=== PATIENT | female | born 1970 | race Two or more races ===

== ENCOUNTER 2018-10-04 11:26 | Outpatient (CLI) | payer OTHER | END 2018-10-04 15:46 | disposition home or self-care (01) | LOC: MAMO-SONO 11:26 | DX: Z12.31 Encounter for screening mammogram for malignant neoplasm of breast (principal); N61.0 Mastitis without abscess ==

== ENCOUNTER 2019-11-17 12:51 | Outpatient (CLI) | payer OTHER | END 2019-11-17 13:17 | disposition home or self-care (01) | LOC: MAMO-SONO 12:51 | DX: Z12.31 Encounter for screening mammogram for malignant neoplasm of breast (principal); Z87.898 Personal history of other specified conditions; N60.11 Diffuse cystic mastopathy of right breast; N60.12 Diffuse cystic mastopathy of left breast ==

== ENCOUNTER 2021-05-07 14:40 | Outpatient (CLI) | payer OTHER | END 2021-05-07 15:03 | disposition home or self-care (01) | LOC: MAMO-SONO 14:40 | PROVIDERS: ATTEND Obstetrics & Gynecology | DX: N60.11 Diffuse cystic mastopathy of right breast (principal); N60.12 Diffuse cystic mastopathy of left breast; Z12.31 Encounter for screening mammogram for malignant neoplasm of breast ==

== ENCOUNTER 2023-03-08 13:27 | Outpatient (CLI) | payer OTHER | END 2023-03-08 13:41 | disposition home or self-care (01) | LOC: MAMO-SONO 13:27 | PROVIDERS: ATTEND Obstetrics & Gynecology | DX: Z12.31 Encounter for screening mammogram for malignant neoplasm of breast (principal); N60.11 Diffuse cystic mastopathy of right breast; N60.12 Diffuse cystic mastopathy of left breast ==

== ENCOUNTER 2024-08-15 10:33 | Outpatient (CLI) | payer OTHER | END 2024-08-15 10:45 | disposition home or self-care (01) | LOC: MAMO-SONO 10:33 | PROVIDERS: ATTEND Obstetrics & Gynecology | DX: Z12.31 Encounter for screening mammogram for malignant neoplasm of breast (principal); N60.11 Diffuse cystic mastopathy of right breast; N60.12 Diffuse cystic mastopathy of left breast ==